=== PATIENT | male | born 1975 | race Caucasian/White ===

== ENCOUNTER 2018-11-24 07:01 | Day surgery (SDC) | payer OTHER ==
[~2018-11-24 07:01] MED LIST: DESFLURANE 15 MIN; LIDOCAINE 2% (SDV) 5 ML INJ; SUCCINYLCHOLINE CHLORIDE 100 MG/5 ML SYG IV
[2018-11-24] MEDS ORDERED: SOD CHLORIDE 0.9% 1,000 ML IV (08:00)
[2018-11-24] MEDS ORDERED: CEFAZOLIN 2 GM/50 ML (PMX) 50 ML IVPB (08:00)
[2018-11-24] MEDS ORDERED: BUPIVACAINE 0.25% (MPF) 30 ML INJ (08:50)
[2018-11-24] MEDS ORDERED: LIDOCAINE 1% (MPF) 30 ML INJ (08:50)
[2018-11-24] MEDS ORDERED: CEFAZOLIN 1 GM INJ (08:57)
[2018-11-24] MEDS ORDERED: ROCURONIUM 50 MG INJ (08:57)
[2018-11-24] MEDS ORDERED: NEOSTIGMINE 3 MG/3 ML SYRINGE (08:57)
[2018-11-24] MEDS ORDERED: GLYCOPYRROLATE 0.4 MG INJ (08:57)
[2018-11-24] MEDS ORDERED: PROPOFOL 20 ML (08:57)
[2018-11-24] MEDS ORDERED: MIDAZOLAM 1 MG/ML 2 ML INJ (08:57)
[2018-11-24] MEDS ORDERED: FENTAnyl 50 MCG/ML VIAL (08:58)
[2018-11-24] MEDS ORDERED: DEXAMETHASONE 4 MG/ML 5 ML INJ (08:58)
[2018-11-24] MEDS ORDERED: ONDANSETRON 4 MG INJ (08:58)
[2018-11-24 09:00] LABS: ADD MAN DIFF? NO
[2018-11-24] MEDS ORDERED: HYDROmorphONE 1 MG/5 ML IV SYRINGE IV (09:00)
[2018-11-24] MEDS ORDERED: TRIMETHOBENZAMIDE 100 MG/ML VIAL IM (09:00)
[2018-11-24] MEDS ORDERED: DIPHENHYDRAMINE 50 MG INJ IV (09:00)
[2018-11-24] MEDS ORDERED: LABETALOL HCL 20MG INJ IV (09:00)
[2018-11-24] MEDS ORDERED: ONDANSETRON 4 MG INJ IV (09:00)
[2018-11-24] MEDS ORDERED: MEPERIDINE 25 MG INJ IV (09:00)
[2018-11-24] MEDS ORDERED: OXYCODONE/ACETAMINOPHEN (5/325) TAB PO ×2 (09:00)
[2018-11-24] MEDS ORDERED: EPHEDrine SULFATE 50 MG/5 ML SYG IV (09:00)
[2018-11-24] MEDS ORDERED: hydrALAzine 20 MG INJ IV (09:00)
[2018-11-24] MEDS ORDERED: ALBUTEROL 0.083% (NEB) 2.5 MG/3 ML AMP HHN (09:00)
[2018-11-24] MEDS ORDERED: FENTAnyl 50 MCG/ML VIAL IV ×3 (09:00)
[2018-11-24] MEDS ORDERED: IPRATROPIUM (NEB) 0.5 MG/2.5 ML AMP HHN (09:00)
[2018-11-24] MEDS ORDERED: MIDAZOLAM 1 MG/ML 2 ML INJ IV (09:00)
[2018-11-24 09:02] LABS: WHITE BLOOD COUNT 10.6 10^3/ul (4.8-10.8)
[2018-11-24 09:02] LABS: ABNORMAL IP MESSAGE 1; BASOPHIL # 0.1 10^3/ul (0.0-0.1); BASOPHILS % 0.8 % (0.0-2.0); EOSINOPHILS # 0.5 10^3/ul (0.0-0.5); EOSINOPHILS % 4.4 % (0.0-7.0); HEMATOCRIT 44.8 % (42.0-52.0); HEMOGLOBIN 14.6 g/dl (14.0-18.0); LYMPHOCYTES % 28.4 % (15.0-51.0); MEAN CORPUSCULAR HEMOGLOBIN 26.4 pg (29.0-33.0); MEAN CORPUSCULAR HGB CONC 32.6 g/dl (32.0-37.0); MEAN CORPUSCULAR VOLUME 80.9 fl (82.0-101.0); MEAN PLATELET VOLUME 13.3 fl (7.4-10.4); MONOCYTE # 0.8 10^3/ul (0.3-0.9); MONOCYTES % 7.4 % (0.0-11.0); NEUTROPHIL # 6.2 10^3/ul (1.6-7.5); NEUTROPHILS % 58.5 % (39.0-77.0); PLATELET COUNT 171 10^3/UL (140-415); POSITIVE DIFF @See below; RED BLOOD COUNT 5.54 10^6/ul (4.70-6.10); RED CELL DISTRIBUTION WIDTH 13.4 % (11.5-14.5)
[2018-11-24 09:10] LABS: ALANINE AMINOTRANSFERASE 40 IU/L (13-69); ALBUMIN 4.4 g/dl (3.3-4.9); ALBUMIN/GLOBULIN RATIO 1.41; ALKALINE PHOSPHATASE 64 IU/L (42-121); ANION GAP 10 (5-13); ASPARTATE AMINO TRANSFERASE 35 IU/L (15-46); BILIRUBIN,INDIRECT 0.2 mg/dl (0-1.1); BILIRUBIN,TOTAL 0.2 mg/dl (0.2-1.3); BLOOD UREA NITROGEN 20 mg/dl (7-20); CALCIUM 9.8 mg/dl (8.4-10.2); CARBON DIOXIDE 25 mmol/L (21-31); CHLORIDE 106 mmol/L (97-110); CREATININE 0.71 mg/dl (0.61-1.24); Estimated GFR > 60 mL/min (>60); GLUCOSE 111 mg/dl (70-220); POTASSIUM 3.9 mmol/L (3.5-5.1); SODIUM 141 mmol/L (135-144); TOTAL PROTEIN 7.5 g/dl (6.1-8.1)
[2018-11-24 09:19] LABS: INR 0.96; PROTIME 12.9 Sec (11.9-14.9)
[2018-11-24 09:20] LABS: PARTIAL THROMBOPLASTIN TIME 29.9 Sec (23.0-35.0)
[2018-11-24] MEDS: BUPIVACAINE 0.25% (MPF) 30 ML INJ (09:53)
[2018-11-24] MEDS: BACITRACIN 0.9 GM OINT (09:54)
[2018-11-24] MEDS ORDERED: HYDROCODONE/APAP (5/325) TAB PO (10:00)
[2018-11-24] MEDS: HYDROmorphONE 1 MG/5 ML IV SYRINGE IV ×2 (10:04→10:11)
== END 2018-11-24 11:11 | disposition home or self-care (01) ==
LOC: SDS 07:01
DX: D17.0 Benign lipomatous neoplasm of skin and subcutaneous tissue of head, face and neck (principal); E78.5 Hyperlipidemia, unspecified; E11.9 Type 2 diabetes mellitus without complications; E66.9 Obesity, unspecified; Z87.891 Personal history of nicotine dependence
CPT/HCPCS: 14020; 80053; 82962; 85025; 85610; 85730; 88307